=== PATIENT | male | born 1970 | race Caucasian/White ===

== ENCOUNTER 2020-09-28 13:28 | Emergency (ER) | payer BC ==
[~2020-09-28] VITALS: Ht 190.5 cm; Wt 158.8 kg
[~2020-09-28 13:28] MED LIST: CELEBREX200 MG PO; LOPRESSOR 25 MG25 MG PO
== END 2020-09-28 18:30 | disposition home or self-care (01) ==
LOC: ER1 13:28
DX: U07.1 COVID-19 (principal)
CPT/HCPCS: 99284; M0239

== ENCOUNTER → 2020-10-30 | Outpatient (CLI) | payer BC | LOC: KOH-I 10:12 | DX: R31.9 Hematuria, unspecified (principal); R10.9 Unspecified abdominal pain; N20.0 Calculus of kidney | CPT/HCPCS: 74176 ==

== ENCOUNTER → 2021-06-14 | Outpatient (CLI) | payer BC | LOC: KOH-I 12:44 | DX: M25.561 Pain in right knee (principal); M17.11 Unilateral primary osteoarthritis, right knee | CPT/HCPCS: 73562 ==